=== PATIENT | female | born 1970 | race Caucasian/White ===

== ENCOUNTER 2020-08-26 16:18 | Emergency (ER) | payer OTHER ==
[2020-08-26 17:24] LABS: BASOPHIL 0.6 % (0-2); EOSINOPHIL 1.5 % (0-5); HCT 48.4 % (37.0-47.0); HGB 16.6 g/dl (12.5-16.0); LYMPHOCYTE 17.1 % (15-48); MCH 30.3 pg (25.0-31.0); MCHC 34.3 g/dL (32.0-36.0); MCV 88.3 fL (78.0-100.0); MONOCYTE 8.5 % (0-12); MPV 8.4 fL (6.0-9.5); NEUTROPHIL 71.9 % (41-80); NRBC 0; PLT 226 K/uL (150-400); RBC 5.48 M/uL (4.20-5.40); RDW 12.1 % (11.5-14.0); WBC 9.5 K/uL (4.0-10.5)
[2020-08-26 17:36] LABS: CLARITY CLEAR (CLEAR); COLOR YELLOW (YELLOW)
[2020-08-26 17:37] LABS: BILIRUBIN NEGATIVE (NEGATIVE); BLOOD 2+ Ery/uL (NEGATIVE); GLUCOSE (U) TRACE mg/dL (NORMAL); LEUKOCYTES NEGATIVE Leu/uL (NEGATIVE); NITRITE NEGATIVE (NEGATIVE); PROTEIN NEGATIVE (NEGATIVE); UROBILINOGEN 0.2 mg/dL (0.2-1.0)
[2020-08-26 17:39] LABS: AMORPHOUS URATES CRYSTALS MODERATE; BACTERIA 1+; MUCOUS MODERATE; URINARY RBC RARE
[2020-08-26 17:40] LABS: BUN/CREAT RATIO (CALC) 24.7 RATIO; CREATININE 0.89 mg/dL (0.51-0.95); POTASSIUM 4.2 mmol/L (3.5-5.1)
[2020-08-26] MEDS ORDERED: BACLOFEN 20MG T20 MG PO (19:09)
[2020-08-26] MEDS ORDERED: KETOROLAC TROME10 MG PO (19:09)
== END 2020-08-26 19:15 | disposition home or self-care (01) ==
LOC: FER 16:18
PROVIDERS: Nurse Practitioner Family
DX: N20.0 Calculus of kidney (principal); F17.290 Nicotine dependence, other tobacco product, uncomplicated; Z88.0 Allergy status to penicillin; Z88.2 Allergy status to sulfonamides; Z91.040 Latex allergy status; Z90.10 Acquired absence of unspecified breast and nipple; Z85.3 Personal history of malignant neoplasm of breast
CPT/HCPCS: 36415; 80048; 81001; 85025; J1885; J7030

== ENCOUNTER 2020-08-29 19:36 | Emergency (ER) | payer OTHER ==
[~2020-08-29 19:36] MED LIST: BACLOFEN 20MG T20 MG PO; KETOROLAC TROME10 MG PO
[2020-08-29] MEDS ORDERED: CEPHALEXIN500 M1 PO (20:25)
[2020-08-29 20:41] LABS: BILIRUBIN NEGATIVE (NEGATIVE); BLOOD 3+ Ery/uL (NEGATIVE); CLARITY CLEAR (CLEAR); COLOR YELLOW (YELLOW); GLUCOSE (U) NORMAL (NORMAL); LEUKOCYTES NEGATIVE Leu/uL (NEGATIVE); NITRITE NEGATIVE (NEGATIVE); PROTEIN 2+ mg/dL (NEGATIVE); SPECIFIC GRAVITY 1.025 (1.001-1.030); UROBILINOGEN 0.2 mg/dL (0.2-1.0)
[2020-08-29 20:48] LABS: AMORPHOUS URATES CRYSTALS TRACE; BACTERIA 1+; MUCOUS TRACE; URINARY WBC RARE
[2020-08-29] MEDS ORDERED: KETOROLAC TROME10 MG PO (21:01)
== END 2020-08-29 21:18 | disposition home or self-care (01) ==
LOC: FER 19:36
PROVIDERS: Nurse Practitioner Family
DX: N23 Unspecified renal colic (principal); C50.919 Malignant neoplasm of unspecified site of unspecified female breast; Z90.13 Acquired absence of bilateral breasts and nipples; Z88.0 Allergy status to penicillin; Z88.2 Allergy status to sulfonamides; Z88.5 Allergy status to narcotic agent; Z88.6 Allergy status to analgesic agent; Z91.040 Latex allergy status; Z88.8 Allergy status to other drugs, medicaments and biological substances
CPT/HCPCS: 81001; 99283; J1885; Q0162

== ENCOUNTER 2020-09-02 09:38 | Emergency (ER) | payer OTHER ==
[~2020-09-02 09:38] MED LIST changes: +CEPHALEXIN500 M1 PO
[2020-09-02 10:18] LABS: BASOPHIL 0.8 % (0-2); EOSINOPHIL 4.2 % (0-5); HCT 42.5 % (37.0-47.0); HGB 14.2 g/dl (12.5-16.0); LYMPHOCYTE 33.4 % (15-48); MCH 29.9 pg (25.0-31.0); MCHC 33.4 g/dL (32.0-36.0); MCV 89.5 fL (78.0-100.0); MONOCYTE 8.7 % (0-12); MPV 8.9 fL (6.0-9.5); NEUTROPHIL 52.5 % (41-80); NRBC 0; PLT 206 K/uL (150-400); RBC 4.75 M/uL (4.20-5.40); WBC 7.7 K/uL (4.0-10.5)
[2020-09-02 10:20] LABS: BILIRUBIN NEGATIVE (NEGATIVE); BLOOD 1+ Ery/uL (NEGATIVE); CLARITY CLEAR (CLEAR); COLOR YELLOW (YELLOW); GLUCOSE (U) NORMAL (NORMAL); LEUKOCYTES NEGATIVE Leu/uL (NEGATIVE); NITRITE NEGATIVE (NEGATIVE); PROTEIN NEGATIVE (NEGATIVE); UROBILINOGEN 0.2 mg/dL (0.2-1.0)
[2020-09-02 10:24] LABS: ECSTASY (MDMA) NEGATIVE (NEGATIVE); MARIJUANA (THC) POSITIVE (NEGATIVE); METHADONE NEGATIVE (NEGATIVE); OPIATES NEGATIVE (NEGATIVE)
[2020-09-02 10:25] LABS: AMPHETAMINES NEGATIVE (NEGATIVE); BARBITURATES NEGATIVE (NEGATIVE); OXYCODONE NEGATIVE (NEGATIVE)
[2020-09-02 10:31] LABS: ALBUMIN 3.6 g/dL (3.4-5.0); BILIRUBIN - TOTAL 0.4 mg/dL (0.2-1.0); BUN/CREAT RATIO (CALC) 15.6 RATIO; C-REACTIVE PROTEIN 1.5 mg/dL (<=0.90); CREATININE 0.77 mg/dL (0.51-0.95); POTASSIUM 3.9 mmol/L (3.5-5.1); TOTAL PROTEIN 6.6 g/dL (6.4-8.2)
[2020-09-02 10:46] LABS: URINARY RBC RARE; URINARY WBC RARE
[2020-09-02] MEDS ORDERED: PYRIDIUM200 MG PO (13:21)
[2020-09-02] MEDS ORDERED: PERCOCET 5-3251 EACH PO (13:21)
== END 2020-09-02 13:48 | disposition home or self-care (01) ==
LOC: FER 09:38
PROVIDERS: Emergency Medicine Emergency Medical Services
DX: R10.31 Right lower quadrant pain (principal); F17.290 Nicotine dependence, other tobacco product, uncomplicated; Z90.710 Acquired absence of both cervix and uterus; Z85.3 Personal history of malignant neoplasm of breast; Z90.13 Acquired absence of bilateral breasts and nipples; Z88.0 Allergy status to penicillin; Z88.2 Allergy status to sulfonamides; Z88.5 Allergy status to narcotic agent; Z88.6 Allergy status to analgesic agent; Z91.040 Latex allergy status
CPT/HCPCS: 36415; 80053; 80305; 81001; 83605; 84145; 85025; 86140; J1170; J1885; J2405; Q9967

== ENCOUNTER 2020-09-09 16:18 | Emergency (ER) | payer OTHER ==
[~2020-09-09 16:18] MED LIST changes: +PERCOCET 5-3251 EACH PO; +PYRIDIUM200 MG PO
[2020-09-09] MEDS ORDERED: CYCLOBENZAPRINE10 MG PO (18:00)
[2020-09-09] MEDS ORDERED: PREDNISONE 20MG20 MG PO (18:00)
[2020-09-09] MEDS ORDERED: ULTRAM50 MG PO (18:00)
== END 2020-09-09 18:22 | disposition home or self-care (01) ==
LOC: FER 16:18
DX: M51.16 Intervertebral disc disorders with radiculopathy, lumbar region (principal); F17.200 Nicotine dependence, unspecified, uncomplicated; Z87.442 Personal history of urinary calculi; Z88.0 Allergy status to penicillin; Z88.5 Allergy status to narcotic agent; Z88.2 Allergy status to sulfonamides; Z91.040 Latex allergy status
CPT/HCPCS: 72131; J1885; J7512

== ENCOUNTER 2021-01-05 16:07 | Emergency (ER) | payer OTHER ==
[~2021-01-05 16:07] MED LIST changes: +CYCLOBENZAPRINE10 MG PO; +PREDNISONE 20MG20 MG PO; +ULTRAM50 MG PO
[2021-01-05 17:38] LABS: BILIRUBIN NEGATIVE (NEGATIVE); BLOOD 1+ Ery/uL (NEGATIVE); CLARITY CLEAR (CLEAR); COLOR YELLOW (YELLOW); GLUCOSE (U) NORMAL (NORMAL); LEUKOCYTES NEGATIVE Leu/uL (NEGATIVE); NITRITE NEGATIVE (NEGATIVE); PROTEIN NEGATIVE (NEGATIVE); UROBILINOGEN 0.2 mg/dL (0.2-1.0)
[2021-01-05 17:49] LABS: BASOPHIL 0.6 % (0-2); EOSINOPHIL 2.5 % (0-5); HCT 50.2 % (37.0-47.0); HGB 16.5 g/dl (12.5-16.0); LYMPHOCYTE 19.9 % (15-48); MCH 29.6 pg (25.0-31.0); MCHC 32.9 g/dL (32.0-36.0); MCV 90.1 fL (78.0-100.0); MONOCYTE 9.4 % (0-12); MPV 9.1 fL (6.0-9.5); NEUTROPHIL 66.8 % (41-80); NRBC 0; PLT 252 K/uL (150-400); RBC 5.57 M/uL (4.20-5.40); RDW 12.1 % (11.5-14.0); SQUAMOUS EPITHELIAL CELLS RARE; URINARY RBC RARE; URINARY WBC RARE; WBC 12.1 K/uL (4.0-10.5)
[2021-01-05 18:44] LABS: AMPHETAMINES NEGATIVE (NEGATIVE); BARBITURATES NEGATIVE (NEGATIVE); ECSTASY (MDMA) NEGATIVE (NEGATIVE); MARIJUANA (THC) POSITIVE (NEGATIVE); METHADONE NEGATIVE (NEGATIVE); OPIATES NEGATIVE (NEGATIVE); OXYCODONE NEGATIVE (NEGATIVE)
[2021-01-05 18:52] LABS: ALBUMIN 4.6 g/dL (3.4-5.0); BILIRUBIN - TOTAL 0.5 mg/dL (0.2-1.0); CREATININE 1.41 mg/dL (0.51-0.95); GLOBULIN (CALCULATION) 3.6 g/dL; POTASSIUM 4.1 mmol/L (3.5-5.1); TOTAL PROTEIN 8.2 g/dL (6.4-8.2)
[2021-01-05 19:07] LABS: LACTIC ACID 1.2 mmol/L (0.4-1.9)
[2021-01-05] MEDS ORDERED: ZOFRAN4 M1 PO (20:07)
[2021-01-05] MEDS ORDERED: BENTYL10 MG PO (20:07)
== END 2021-01-05 20:51 | disposition home or self-care (01) ==
LOC: FER 16:07
PROVIDERS: Nurse Practitioner Family
DX: R10.84 Generalized abdominal pain (principal); R11.0 Nausea; I10 Essential (primary) hypertension; F17.210 Nicotine dependence, cigarettes, uncomplicated; Z88.6 Allergy status to analgesic agent; Z88.0 Allergy status to penicillin; Z88.2 Allergy status to sulfonamides; Z88.5 Allergy status to narcotic agent; Z91.040 Latex allergy status
CPT/HCPCS: 36415; 80053; 80305; 81001; 82150; 83605; 83690; 84484; 85025; 87040; 93005; J1170; J2405; J7030

== ENCOUNTER → 2021-01-30 | Day surgery (SDC) | payer OTHER ==
[~2021-01-30] VITALS: Ht 152.4 cm; Wt 63.5 kg
[~2021-01-30] MED LIST changes: +ALKA-SELTZER PO; +BC POWDER PACK1 EACH PO; +BENTYL10 MG PO; +ZOFRAN4 M1 PO
== END | disposition home or self-care (01) ==
LOC: FAS 07:12
DX: K81.1 Chronic cholecystitis (principal); K82.8 Other specified diseases of gallbladder; K59.09 Other constipation; I10 Essential (primary) hypertension; Z90.710 Acquired absence of both cervix and uterus; Z88.5 Allergy status to narcotic agent; Z88.0 Allergy status to penicillin; Z88.2 Allergy status to sulfonamides; Z88.6 Allergy status to analgesic agent; Z91.040 Latex allergy status; Z72.89 Other problems related to lifestyle; Z72.0 Tobacco use
CPT/HCPCS: J0295; J1100; J1170; J1885; J1956; J2250; J2405; J2550; J2704; J2710; J3010; J7120